=== PATIENT | female | born 1950 | race Caucasian/White ===

== ENCOUNTER 2019-03-02 22:01 | Emergency (ER) | payer MEDICARE ==
--- NOTE | 2019-03-02 23:31 | XRay Report ---
CHEST 1 VIEW INDICATION / CLINICAL INFORMATION: Chest Pain. COMPARISON: 05/12/2014 FINDINGS: SUPPORT DEVICES: None. HEART / MEDIASTINUM: No significant abnormality. LUNGS / PLEURA: No significant pulmonary or pleural abnormality. No pneumothorax. ADDITIONAL FINDINGS: No significant additional findings. IMPRESSION: 1. No acute findings. No interval change. Signer Name: Jessica Gill MD Signed: 03/02/2019 11:27 PM Workstation Name: [id number]
[2019-03-02 23:35] LABS: Basophils # (Auto) 0.1 K/mm3 (0.0-0.1); Basophils % (Auto) 0.6 % (0.0-1.8); Eosinophils # (Auto) 0.2 K/mm3 (0.0-0.4); Eosinophils % (Auto) 1.9 % (0.0-4.3); Hematocrit 36.1 % (30.3-42.9); Hemoglobin 12.4 gm/dl (10.1-14.3); Lymphocytes # (Auto) 2.9 K/mm3 (1.2-5.4); Lymphocytes % (Auto) 24.5 % (13.4-35.0); Mean Corpuscular HGB Conc 34 % (30-34); Mean Corpuscular Volume 89 fl (79-97); Monocytes # (Auto) 0.9 K/mm3 (0.0-0.8); Monocytes % (Auto) 7.9 % (0.0-7.3); Platelet Count 391 K/mm3 (140-440); Red Blood Count 4.05 M/mm3 (3.65-5.03); Red Cell Distribution Width 12.6 % (13.2-15.2)
[2019-03-02] MEDS ORDERED: MECLIZINE 25 MG TAB PO ONE (23:36)
--- NOTE | 2019-03-02 23:36 | Emergency Department Report ---
HPI - General Chief Complaint: Arrhythmia/Palpitations Time Seen by Provider: 03/02/19 23:08 - HPI HPI: 68-year-old female presents to the emergency department with complaint of a 3 day history of palpitations and then today the patient passed out while on the way to the laundry room. She complains of some generalized dizziness that she describes as both a room spinning sensation and feeling like she is going to pass out. The patient's granddaughters currently at bedside translating for us and says that she feels the patient is wobbly when she is walking. She has a past medical history of hypertension, high cholesterol, diabetes. Her card iologist is Dr. Kathleen Allison and she saw them 2 days ago regarding the palpitations. No recent travel or sick contacts at home. She denies any headache, vision change, slurred speech or any other neurological deficits. She has not taken anything for her symptoms prior to arrival today. ED Past Medical Hx - Past Medical History Previous Medical History?: Yes Hx Hypertension: Yes Additional medical history: high cholesterol, CARDIAC DISEASE - Surgical History Past Surgical History?: Yes Hx Cholecystectomy: Yes Additional Surgical History: unsure - Social History Smoking Status: Never Smoker Substance Use Type: None - Medications Home Medications: Home Medications Medication Instructions Recorded Confirmed Last Taken Type Acetaminophen/Codeine [Tylenol 1 tab PO Q6H PRN #10 tab 05/12/14 Unknown Rx /Codeine # 3 tab] Cyclobenzaprine [Flexeril 10mg] 10 mg PO TID PRN #10 tablet 05/12/14 Unknown Rx Fenofibrate [Lofibra] 160 mg PO DAILY 05/12/14 05/12/14 05/12/14 History Gabapentin [Neurontin] 300 mg PO DAILY 05/12/14 05/12/14 05/12/14 History Lisinopril [Zestril TAB] 20 mg PO DAILY 05/12/14 05/12/14 05/12/14 History Meclizine [Antivert] 25 mg PO TID PRN #20 tablet 03/03/19 Unknown Rx ED Review of Systems ROS: Stated complaint: HEART ISSUE Other details as noted in HPI Comment: All other systems reviewed and negative Constitutional: denies: chills, fever Eyes: denies: eye pain, vision change ENT: denies: ear pain, throat pain Respiratory: denies: cough, shortness of breath Cardiovascular: palpitations, syncope. denies: chest pain Gastrointestinal: nausea, vomiting. denies: abdominal pain Genitourinary: denies: dysuria, discharge Musculoskeletal: denies: back pain, arthralgia Skin: denies: rash, lesions Neurological: vertigo, other (dizziness). denies: headache, numbness, paresthesias Physical Exam - Physical Exam Vital Signs: Vital Signs 03/02/19 03/02/19 03/02/19 22:06 23:19 23:27 Temperature 97.8 F Pulse Rate 47 L 47 L 47 L Respiratory 18 20 Rate Blood Pressure 109/52 Blood Pressure 123/61 [Right] O2 Sat by Pulse 99 96 Oximetry Physical Exam: GENERAL: The patient is well-developed well-nourished. HENT: Normocephalic. Atraumatic. Patient has moist mucous membranes. EYES: Extraocular motions are intact. Pupils equal reactive to light bilateral ly. No nystagmus. NECK: Supple. Trachea is midline. CHEST/LUNGS: Clear to auscultation. There is no respiratory distress noted. HEART/CARDIOVASCULAR: Regular. There is no tachycardia. There is no murmur. ABDOMEN: Abdomen is soft, nontender. Patient has normal bowel sounds. There is no abdominal distention. SKIN: Skin is warm and dry. NEURO: The patient is awake, alert, and oriented. The patient is cooperative. The patient has no focal neurologic deficits. Normal speech. Cranial nerves II through XII grossly intact. No pronator drift. No dysmetria. MUSCULOSKELETAL: There is no tenderness or deformity. There is no limitation range of motion. There is no evidence of acute injury. ED Course Vital Signs 03/02/19 03/02/19 03/02/19 22:06 23:19 23:27 Temperature 97.8 F Pulse Rate 47 L 47 L 47 L Respiratory 18 20 Rate Blood Pressure 109/52 Blood Pressure 123/61 [Right] O2 Sat by Pulse 99 96 Oximetry ED Medical Decision Making - Lab Data Result diagrams: 03/02/19 23:14 03/02/19 23:14 - EKG Data -: EKG Interpreted by Md EKG shows normal: sinus rhythm, axis, intervals (prolonged NH interval indicating first-degree AV block), QRS complexes, ST-T waves Rate: bradycardia (48 bpm) - EKG Data When compared to previous EKG there are: previous EKG unavailable Interpretation: other (sinus bradycardia at 48 bpm, prolonged NH interval) - Radiology Data Radiology results: report reviewed CT head/brain wo con INDICATION / CLINICAL INFORMATION: Dizziness, Syncope. TECHNIQUE: Axial CT imaging of the brain was obtained without contrast. Coronal and sagittal reformatted imaging obtained and reviewed. All CT scans at this location are performed using CT dose reduction for ALARA by means of automated exposure control. COMPARISON: None available. FINDINGS: No intracranial hemorrhage, mass, or midline shift is noted. No extra-axial fluid collection or suggestion of acute territorial infarct. Mild cerebral atrophy noted. Minimal white matter disease most likely microvascular angiopathy. Visualized paranasal sinuses and mastoid air cells are well aerated and clear. No calvarial abnormality. IMPRESSION: 1. No acute intracranial abnormality. 2. Mild age- related changes. NECK CT ANGIOGRAM HISTORY: Dizziness FINDINGS: Contrast-enhanced CT angiographic images of the neck were obtained. In addition to the axial images, sagittal and coronal reformatted images were obtained. In addition, 3 plane MIP reconstructions were produced. There is no evidence of carotid bifurcation stenosis or significant abnormality. Mild atherosclerotic vascular calcification is present carotid bifurcations. Vertebral artery contours are unremarkable. Visualized portions of the aortic arch are normal. IMPRESSION: Negative exam. No evidence of carotid bifurcation stenosis. NASCET like criteria were used in this evaluation. HEAD CT ANGIOGRAM HISTORY: Dizziness FINDINGS: Contrast-enhanced CT angiographic images of the intracranial circulation were obtained. In addition to the axial images, sagittal and coronal reformatted images were obtained. In addition, 3 plane MIP reconstructions were produced. There is no evidence of acute abnormality. There is no evidence of vessel occlusion or stenosis. Vertebrobasilar system is normal. IMPRESSION: Negative exam. - Medical Decision Making This patient presents to the emergency department after having some dizziness, an episode of nausea and vomiting, and later a syncopal episode. Since being in the emergency department the patient has been awake, alert, and in no acute distress. She has no focal, motor or sensory deficits in her cranial nerves are intact. The granddaughter says that she was having some difficulty walking in terms of being off balanced. A CT scan of the head without contrast was done that does not show any bleed, shift, mass, ischemia, or any other acute process. The patient's labs have been mostly unremarkable including CBC, CMP, troponin, d-dimer. The patient does have some hyperglycemia with a blood sugar of about 230 but does not appear to be in diabetic ketoacidosis. She had a slightly elevated TSH level but also a slightly elevated free T4. A chest x-ray was done that does not show any pneumonia, pleural effusions, pneumothorax, focal consolidation, or any other acute process. The patient also had CT angiography of the head and neck done to try to rule out or look into a posterior circulation stroke as the source of her symptoms. However both the CT angiography of the head and neck were negative for any acute process. Patient did have some bradycardia when she first came to the emergency department with a heart rate going into the mid 40s. She has a first-degree AV block on the EKG and is also on both Cardizem and carvedilol, chronotropic antihypertensives. As her ED course continued and the affected these medications started to wear off, her heart rate generally stayed in the 50s. I wonder if given the first-degree AV block and these medications, whether the patient may have had even more significant bradycardia earlier in the day that led to her symptoms. The patient had described some vertigo-like symptoms so a dose of Antivert was given. Upon reevaluation she is feeling improved. 2 different times the patient was tested ambulating around the emergency department and she both appears and feels stable. She will be discharged home to follow-up with her primary care physician and foreign trade teacher. She has been instructed to return to the emergency department immediately with any worsening of her symptoms or any acute distress. - Differential Diagnosis CVA, TIA, dysrhythmia, bradycardia Critical Care Time: No Critical care attestation.: If time is entered above; I have spent that time in minutes in the direct care of this critically ill patient, excluding procedure time. ED Disposition Clinical Impression: Dizziness, Vertigo, Syncope, First degree AV block Disposition: DC-01 TO HOME OR SELFCARE Is pt being admited?: No Condition: Stable Instructions: Vertigo (ED), Syncope (ED), Bradycardia (ED), Dizziness (ED) Additional Instructions: Please follow-up with your primary care physician in the next few days. It is also recommended that you follow-up with your foreign trade teacher regarding the low heart rate to evaluate your medications. Return to the emergency department immediately with any further episodes of passing out, worsening of your dizziness or vertigo, or with any acute distress. Prescriptions: Meclizine [Antivert] 25 mg PO TID PRN #20 tablet PRN Reason: Vertigo Referrals: PRIMARY CARE, [Primary Care Provider] - 2-3 Days KATHLEEN ALLISON MD [Staff Physician] - 2-3 Days Time of Disposition: 05:25
[2019-03-02 23:45] LABS: INR 1.02 (0.87-1.13)
[2019-03-02 23:57] LABS: BUN/Creatinine Ratio 21; Blood Urea Nitrogen 17 mg/dL (7-17); Calcium 9.2 mg/dL (8.4-10.2); Hemolysis Index 12
--- NOTE | 2019-03-03 01:41 | Cat Scan Report ---
CT head/brain wo con INDICATION / CLINICAL INFORMATION: Dizziness, Syncope. TECHNIQUE: Axial CT imaging of the brain was obtained without contrast. Coronal and sagittal reformatted imaging obtained and reviewed. All CT scans at this location are performed using CT dose reduction for ALAR A by means of automated exposure control. COMPARISON: None available. FINDINGS: No intracranial hemorrhage, mass, or midline shift is noted. No extra-axial fluid collection or sugge stion of acute territorial infarct. Mild cerebral atrophy noted. Minimal white matter disease most li anahy microvascular angiopathy. Visualized paranasal sinuses and mastoid air cells are well aerated and clear. No calvarial abnormali ty. IMPRESSION: 1. No acute intracranial abnormality. 2. Mild age-related changes. Signer Name: Jessica Gill MD Signed: 03/03/2019 1:37 AM Workstation Name: [id number]
[2019-03-03 04:42] VITALS: BP 140/53
--- NOTE | 2019-03-03 05:10 | Cat Scan Report ---
HEAD CT ANGIOGRAM HISTORY: Dizziness FINDINGS: Contrast-enhanced CT angiographic images of the intracranial circulation were obtained. In addition to the axial images, sagittal and coronal reformatted images were obtained. In addition, 3 p brittanie MIP reconstructions were produced. There is no evidence of acute abnormality. There is no evidence of vessel occlusion or stenosis. Vertebrobasilar system is normal. IMPRESSION: Negative exam. All CT scans at this location are performed using dose reduction to ALARA by means of automated expos ure control. Signer Name: Brock Spencer MD Signed: 03/03/2019 5:06 AM Workstation Name: [id number]
--- NOTE | 2019-03-03 05:14 | Cat Scan Report ---
NECK CT ANGIOGRAM HISTORY: Dizziness FINDINGS: Contrast-enhanced CT angiographic images of the neck were obtained. In addition to the axia l images, sagittal and coronal reformatted images were obtained. In addition, 3 plane MIP reconstruct ions were produced. There is no evidence of carotid bifurcation stenosis or significant abnormality. Mild atherosclerotic vascular calcification is present carotid bifurcations. Vertebral artery contours are unremarkable. Visualized portions of the aortic arch are normal. IMPRESSION: Negative exam. No evidence of carotid bifurcation stenosis. NASCET like criteria were used in this evaluation. All CT scans at this location are performed using dose reduction to ALARA by means of automated expos ure control. Signer Name: Brock Spencer MD Signed: 03/03/2019 5:09 AM Workstation Name: [id number]
== END 2019-03-03 05:30 | disposition home or self-care (01) ==
LOC: ED 22:01
DX: I44.0 Atrioventricular block, first degree (principal); R55 Syncope and collapse; R42 Dizziness and giddiness; E11.9 Type 2 diabetes mellitus without complications; I10 Essential (primary) hypertension; E78.5 Hyperlipidemia, unspecified; Z90.49 Acquired absence of other specified parts of digestive tract; Z79.899 Other long term (current) drug therapy
CPT/HCPCS: 36415; 70450; 70496; 70498; 71045; 80048; 84439; 84443; 84484; 85025; 85379; 85610; 93005; 93010; 99285; Q9967